=== PATIENT | female | born 1960 | race Caucasian/White ===

== ENCOUNTER 2022-10-20 11:48 | Outpatient (REF) | payer OTHER, SELFPAY ==
--- NOTE | ~2022-10-20 | XR_ITS ---
EXAMINATION: XR HIP, RIGHT CLINICAL INFORMATION: Pain in right hip. COMPARISON: None TECHNIQUE: Two views of the right hip. FINDINGS: There is severe loss of right hip joint space with periarticular spurring and subchondral cystic changes. No visible acute fracture, dislocation or subluxation seen. There is no lytic process. XR/XR hip RT min 2V IMPRESSION: Severe degenerative arthritic changes right hip joint. No visible acute fracture or dislocation seen.
== END 2022-10-20 11:49 | disposition home or self-care (01) ==
LOC: HO.XRAY 11:48
PROVIDERS: PCP Family Medicine; Visit Provider Family Medicine
DX: M25.551 Pain in right hip (principal)
CPT/HCPCS: 73502

== ENCOUNTER 2022-11-03 12:18 | Outpatient (REF) | payer OTHER, SELFPAY ==
--- NOTE | ~2022-11-03 | MM_ITS ---
EXAMINATION: MM SCREENING DIGITAL BREAST TOMOSYNTHESIS, BILATERAL CLINICAL INFORMATION: Screening. Asymptomatic. The lifetime risk of breast cancer based on the Tyrer-Cuzick Model is 5%. COMPARISON: Outside mammography: 04/12/2019, 03/20/2018, 09/12/2014 ([facility]). TECHNIQUE: Digital breast tomosynthesis is performed in both the craniocaudal and mediolateral oblique views along with computer-aided detection (CAD). Synthesized 2D images are generated from the tomosynthesis. FINDINGS: There are scattered areas of fibroglandular density (ACR BI-RADS breast composition Category b). There are no significant masses, abnormal calcifications, or other abnormalities. Parenchymal pattern is similar to prior studies. There is no developing density or architectural abnormality. The axilla and skin contours are unremarkable. No significant changes. MM/MM tomosynthesis screening BI IMPRESSION: No mammographic evidence of malignancy. ASSESSMENT: BI-RADS 1: Negative RECOMMENDATION: Routine annual mammography screening. This patient's information was entered into a reminder system with a target due date for their next mammogram.
== END 2022-11-03 12:19 | disposition home or self-care (01) ==
LOC: HO.MAMMO 12:18
PROVIDERS: PCP Family Medicine; Visit Provider Family Medicine
DX: Z12.31 Encounter for screening mammogram for malignant neoplasm of breast (principal)
CPT/HCPCS: 77063; 77067

== ENCOUNTER 2022-11-21 13:00 | Outpatient (RCR) | payer OTHER, SELFPAY ==
--- NOTE | 2022-10-27 17:04 | MHC.PT.EP ---
[facility] [place] Office [place] Office [place] Office [address] [phone] F: [phone] F: [phone] F: [phone] F: [phone] Physical Therapy Plan of Care Date of Evaluation: Date of Surgery: Diagnosis: R hip pain Assessment: Pt is a 61 y/o female referred to PT for eval and treat of R hip pain resulting in decreased tolerance for negotiating stairs, donning/ doffing shoes/ socks, getting in ad out of a vehicle, standing and walking for duration as well as performing squatting and heavy HH chores secondary to decreased R hip ROM and strength, gait abnormality, TTP of anterior R hip, and pain. Pt is deemed an appropriate candidate to receive skilled PT services to address their physical impairments in order to improve their functional ability. Frequency and Duration: The patient will be seen 2mx/ kw x 5 wks. Short Term Goals: Initiate HEP. Improve R hip flexor TTP to 0, initial: 2+ considerable. Health And Wellness Advisor Goals: I with HEP. Pt will be able to negotiate a fl of stairs with at most a little bit of difficulty; initial: quite a bit of difficulty. Pt will be able to don and doff shoes/ socks with at most a little bit of difficulty; initial: quite a bit of difficulty. Improve LEFI by at least 9 points in order to demonstrate improved function. Treatment Plan: Modalities to reduce pain, spasms and effusion. Manual therapy to restore motion and function. Therapeutic exercise to improve strength and flexibility. Neuromuscular re-education for posture and balance. Therapeutic activities to return to functional activities of daily living. Electronically signed by: Fernando Rojo PT. Please sign and return to therapist. Thank you for your referral.
--- NOTE | 2022-12-20 14:53 | MHC.PT.DC ---
[facility] [place] Office [place] Office [place] Office [address] Debbie Arthur [address] [phone] F: [phone] F: [phone] F: [phone] F: [phone] Physical Therapy Discharge Report Diagnosis: R hip pain Date of Surgery: Date of Evaluation: 10/27/22 Date of Discharge: 12/20/22 Treatments to Date: 6 Cancellations to Date: 3 No Shows to Date: Discharge Status: Patient Elected to Stop Visit Non-compliance Discharge Summary: From last Tx: 11/21/22: Pt is progressing well; reports some of her exercises mimic ones at her ex class and modifies her class exercises to be like her HEP. Reports she has been encouraged. NV trial instruction on self hip mobs. Electronically signed by: Fernando Rojo PT. Please sign and return to therapist. Thank you for your referral.
== END 2022-12-20 14:53 | disposition home or self-care (01) ==
LOC: HO.PTCHIC 13:00
PROVIDERS: PCP Family Medicine; Visit Provider Family Medicine
DX: M25.551 Pain in right hip (principal)
CPT/HCPCS: 97110; 97140; 97161

== ENCOUNTER 2022-12-01 12:31 | Outpatient (REF) | payer OTHER, SELFPAY ==
--- NOTE | ~2022-12-01 | XR_ITS ---
EXAMINATION: XR PELVIS CLINICAL INFORMATION: Pain. COMPARISON: Right hip radiographs dated 10/19/2022. TECHNIQUE: AP view of the pelvis. FINDINGS: There is marked narrowing of the superior right acetabular joint space. There is subchondral sclerosis and peripheral osteophyte formation of the articular surfaces of the right hip. There is mild narrowing of the left acetabular joint space, with subchondral sclerosis and irregularity of the left acetabular roof. No fracture or dislocation is seen. The femoral heads are smooth. The sacroiliac joints are symmetric and well-maintained. The pubic symphysis is intact. Multiple pelvic phleboliths are seen. Question left pelvic surgical clip. XR/XR pelvis 1-2V IMPRESSION: There is severe osteoarthritic change of the right hip, and mild to moderate osteoarthritic changes seen of the left hip. No fracture or dislocation is seen.
== END 2022-12-01 12:32 | disposition home or self-care (01) ==
LOC: HO.HOSX 12:31
PROVIDERS: Visit Provider Physician Assistant
DX: M16.11 Unilateral primary osteoarthritis, right hip (principal)
CPT/HCPCS: 72170

== ENCOUNTER 2022-12-08 08:19 | Outpatient (REF) | payer OTHER, SELFPAY ==
[2022-12-08 11:04] LABS: Basophils Absolute Auto 0.1 X10*3/uL (0.0-0.2); Basophils Percent Auto 1.1 % (0-2); Eosinophils Percent Auto 25.3 % (0-4); Hematocrit 38.6 % (37.0-47.0); Hemoglobin 12.4 g/dl (12.0-16.0); Imm Gran Abs Auto 0.02 X10*3/uL (0.00-0.03); Imm Gran Pct Auto 0.3 % (0.0-0.4); Lymphocytes Absolute Auto 2.6 X10*3/uL (1.2-4.9); Lymphocytes Percent Auto 32.5 % (20-40); MANUAL DIFF FLAG SCAN; Mean Corpuscular HGB Conc 32.1 g/dl (31.0-35.0); Mean Corpuscular Hemoglobin 28.4 pg (27.0-33.0); Mean Corpuscular Volume 88.5 fL (80.0-98.0); Mean Platelet Volume 9.9 fL (9.4-12.3); Monocytes Absolute Auto 0.6 X10*3/uL (0.1-1.2); Monocytes Percent Auto 7.2 % (2-11); Neutrophils Absolute Auto 2.7 x10*3/uL (2.0-8.3); Neutrophils Percent Auto 33.6 % (45-73); Platelet Count 273 X10*3/uL (160-400); Red Blood Count 4.36 X10*6/uL (4.20-5.50); Red Cell Distribution Width 13.2 % (11.0-16.0); SCAN SMEAR FLAG 1; White Blood Count 7.9 X10*3/uL (4.8-10.8)
[2022-12-08 11:26] LABS: SLIDE REVIEW VERIFIED
[2022-12-08 11:45] LABS: Alanine Aminotransferase 15 U/L (0-31); Albumin Level 4.2 g/dL (3.5-5.0); Alkaline Phosphatase 86 U/L (39-117); Anion Gap 11 (12-20); Aspartate Amino Transferase 18 U/L (5-31); Bilirubin Total 1.1 mg/dL (0.0-1.0); Blood Urea Nitrogen 16 mg/dL (9-16); Calcium 9.5 mg/dL (8.4-10.2); Carbon Dioxide 26 mmol/L (22-29); Chloride 110 mmol/L (96-108); Cholesterol 248 mg/dL; Estimated Glomerular Filt Rate > 60; Glucose Fasting 99 mg/dL (60-99); HDL Cholesterol 37 mg/dL; LDL Cholesterol Calculated 184 mg/dl; Potassium 4.1 mmol/L (3.3-5.1); Sodium 143 mmol/L (135-145); Total Protein 6.7 g/dL (6.5-8.0); Triglycerides 137 mg/dL
[2022-12-08 11:46] LABS: TSH reflex Free T4 3.07 uIU/mL (0.32-4.0)
[2022-12-08 12:03] LABS: Appearance Urine Hazy; Color Urine Yellow; Glucose Urine UA Negative (Negative); Leukocyte Esterase Urine Trace (Negative); Nitrite Urine Negative (Negative); PH 5.5 (5.0-9.0); Specific Gravity - Urine >= 1.030 (1.005-1.025); UMIC TRIGGER UA YES; Urine Blood Negative (Negative); Urine Ketones Trace mg/dL (Negative); Urine Protein Negative (Neg-Trace)
[2022-12-08 12:29] LABS: Bacteria Urine None Seen (None Seen); RBC Urine 0-2 /HPF (0-2)
[2022-12-08 12:50] LABS: Creatinine Urine 383.06 mg/dL; Microalbum/Creatinine Ratio Ur 9.3 ug/mg cr
== END 2022-12-08 08:20 | disposition home or self-care (01) ==
LOC: HO.WFDLDS 08:19
PROVIDERS: Visit Provider Family Medicine
DX: Z00.00 Encounter for general adult medical examination without abnormal findings (principal); I10 Essential (primary) hypertension
CPT/HCPCS: 36415; 80053; 80061; 81001; 81003; 82043; 84443; 85025

== ENCOUNTER 2023-01-09 12:17 | Outpatient (REF) | payer OTHER, SELFPAY ==
[2023-01-09 14:03] LABS: MANUAL DIFF FLAG NO
[2023-01-09 14:09] LABS: Basophils Absolute Auto 0.1 X10*3/uL (0.0-0.2); Basophils Percent Auto 1.7 % (0-2); Eosinophils Absolute Auto 0.5 X10*3/uL (0.0-0.4); Eosinophils Percent Auto 9.9 % (0-4); Hematocrit 40.1 % (37.0-47.0); Imm Gran Abs Auto 0.01 X10*3/uL (0.00-0.03); Imm Gran Pct Auto 0.2 % (0.0-0.4); Lymphocytes Absolute Auto 1.9 X10*3/uL (1.2-4.9); Lymphocytes Percent Auto 39.6 % (20-40); Mean Corpuscular HGB Conc 32.4 g/dl (31.0-35.0); Mean Corpuscular Hemoglobin 28.7 pg (27.0-33.0); Mean Corpuscular Volume 88.5 fL (80.0-98.0); Mean Platelet Volume 10.6 fL (9.4-12.3); Monocytes Absolute Auto 0.5 X10*3/uL (0.1-1.2); Monocytes Percent Auto 9.9 % (2-11); Neutrophils Absolute Auto 1.8 x10*3/uL (2.0-8.3); Neutrophils Percent Auto 38.7 % (45-73); Platelet Count 267 X10*3/uL (160-400); Red Blood Count 4.53 X10*6/uL (4.20-5.50); Red Cell Distribution Width 13.2 % (11.0-16.0); White Blood Count 4.8 X10*3/uL (4.8-10.8)
[2023-01-09 14:50] LABS: Alanine Aminotransferase 10 U/L (0-31); Albumin Level 4.2 g/dL (3.5-5.0); Alkaline Phosphatase 77 U/L (39-117); Anion Gap 13 (12-20); Aspartate Amino Transferase 16 U/L (5-31); Bilirubin Total 1.9 mg/dL (0.0-1.0); Blood Urea Nitrogen 16 mg/dL (9-16); Calcium 9.5 mg/dL (8.4-10.2); Carbon Dioxide 25 mmol/L (22-29); Chloride 108 mmol/L (96-108); Cholesterol 249 mg/dL; Estimated Glomerular Filt Rate 58; Glucose Fasting 96 mg/dL (60-99); HDL Cholesterol 38 mg/dL; LDL Cholesterol Calculated 195 mg/dl; Potassium 4.2 mmol/L (3.3-5.1); Sodium 142 mmol/L (135-145); Total Protein 6.9 g/dL (6.5-8.0); Triglycerides 82 mg/dL
== END 2023-01-09 12:18 | disposition home or self-care (01) ==
LOC: HO.WFDLDS 12:17
PROVIDERS: Visit Provider Family Medicine
DX: Z00.00 Encounter for general adult medical examination without abnormal findings (principal); R89.8 Other abnormal findings in specimens from other organs, systems and tissues; E78.5 Hyperlipidemia, unspecified
CPT/HCPCS: 36415; 80053; 80061; 85025

== ENCOUNTER 2023-01-11 13:55 | Outpatient (REF) | payer OTHER, SELFPAY ==
--- NOTE | ~2023-01-11 | MM_ITS ---
EXAMINATION: BONE DENSITOMETRY CLINICAL INDICATION: Screening for osteoporosis. COMPARISON: None (current study represents initial baseline exam). TECHNIQUE: Using a [employer] DXA System (software version: 13.1) manufactured by [employer], dual-energy x-ray absorptiometry was performed of the lumbar spine and left hip. The images are of good technical quality. Summary results are attached. FINDINGS: AP SPINE L1-L4: BMD 1.186 g/cm2, Z-score 0.7, T-score 0.1, normal. LEFT FEMUR, NECK: BMD 0.817 g/cm2, Z-score -0.7, T-score -1.6, osteopenia. LEFT FEMUR, TOTAL: BMD 0.923 g/cm2, Z-score -0.2, T-score -0.7, normal. IDENTIFIED RISK FACTORS: Menopause, family history (parent hip fracture). HISTORY OF FRACTURE: None listed. MEDICATIONS: None listed. MM/XR DEXA axial skeleton IMPRESSION: 1. DIAGNOSIS: Osteopenia based on the lowest T-score value of -1.6 in the femoral neck applying World Health Organization criteria. 2. 10-YEAR FRACTURE RISK PREDICTION, FRAX: Major osteoporotic fracture (clinical spine, forearm, hip or shoulder) 16.9%. Hip fracture 0.9%. 3. Treatment Recommendations: NOF guidelines recommend consideration for treatment in postmenopausal women and men age 50 and older presenting with the following: -A hip or vertebral (clinical or morphometric) fracture. -T-score less than or equal to -2.5 at the femoral neck or spine after appropriate evaluation to exclude secondary causes. -Low bone mass at the hip or spine and a 10-year fracture probability by FRAX of greater than or equal to 3% for hip fracture or greater than or equal to 20% for major osteoporotic fracture based on the [place] adapted WHO algorithm. 4. Other Recommendations: All treatment decisions require clinical judgment and consideration of individual patient factors, including patient preferences, comorbidities, previous drug use, risk factors not captured in the FRAX model (e.g. frailty, falls, vitamin D deficiency, increased bone turnover, interval significant decline in bone density) and possible under or overestimation of fracture risk by FRAX. Additional medical evaluation for secondary cause of low bone mineral density may be appropriate. FUTURE SCAN RECOMMENDATION: People with diagnosed cases of osteoporosis or at high risk for fracture should have regular bone mineral density tests. For patients eligible for Medicare, routine testing is allowed once every 2 years. The testing frequency can be increased to one year for patients who have rapidly progressing disease, those who are receiving or discontinuing medical therapy to restore bone mass, or have additional risk factors.
== END 2023-01-11 13:56 | disposition home or self-care (01) ==
LOC: HO.MAMMO 13:55
PROVIDERS: Visit Provider Family Medicine
DX: Z13.820 Encounter for screening for osteoporosis (principal); Z78.0 Asymptomatic menopausal state
CPT/HCPCS: 77080

== ENCOUNTER 2023-03-14 09:49 | Outpatient (REF) | payer OTHER, SELFPAY ==
[2023-03-14 12:13] LABS: MANUAL DIFF FLAG NO
[2023-03-14 12:22] LABS: Basophils Absolute Auto 0.1 X10*3/uL (0.0-0.2); Basophils Percent Auto 1.4 % (0-2); Eosinophils Absolute Auto 0.3 X10*3/uL (0.0-0.4); Eosinophils Percent Auto 5.2 % (0-4); Hematocrit 38.8 % (37.0-47.0); Hemoglobin 12.6 g/dl (12.0-16.0); Imm Gran Abs Auto 0.02 X10*3/uL (0.00-0.03); Imm Gran Pct Auto 0.4 % (0.0-0.4); Mean Corpuscular HGB Conc 32.5 g/dl (31.0-35.0); Mean Corpuscular Hemoglobin 28.8 pg (27.0-33.0); Mean Corpuscular Volume 88.8 fL (80.0-98.0); Mean Platelet Volume 10.6 fL (9.4-12.3); Monocytes Absolute Auto 0.4 X10*3/uL (0.1-1.2); Monocytes Percent Auto 8.7 % (2-11); Neutrophils Absolute Auto 2.2 x10*3/uL (2.0-8.3); Neutrophils Percent Auto 43.3 % (45-73); Platelet Count 259 X10*3/uL (160-400); Red Blood Count 4.37 X10*6/uL (4.20-5.50); Red Cell Distribution Width 13.2 % (11.0-16.0)
[2023-03-14 12:52] LABS: Anion Gap 11 (12-20); Blood Urea Nitrogen 13 mg/dL (9-16); Calcium 9.7 mg/dL (8.4-10.2); Carbon Dioxide 27 mmol/L (22-29); Chloride 109 mmol/L (96-108); Cholesterol 249 mg/dL; Estimated Glomerular Filt Rate 58; Glucose Fasting 92 mg/dL (60-99); HDL Cholesterol 39 mg/dL; LDL Cholesterol Calculated 186 mg/dl; Potassium 4.7 mmol/L (3.3-5.1); Sodium 142 mmol/L (135-145); Triglycerides 120 mg/dL
== END 2023-03-14 09:50 | disposition home or self-care (01) ==
LOC: HO.WFDLDS 09:49
PROVIDERS: Visit Provider Family Medicine
DX: Z00.00 Encounter for general adult medical examination without abnormal findings (principal); E78.5 Hyperlipidemia, unspecified
CPT/HCPCS: 36415; 80048; 80061; 85025

== ENCOUNTER 2023-04-06 13:28 | Outpatient (REF) | payer OTHER, SELFPAY ==
--- NOTE | ~2023-04-06 | US_ITS ---
EXAMINATION: US THYROID CLINICAL INFORMATION: Mass right side of neck. COMPARISON: None available. TECHNIQUE: Linear transducer grayscale and color Doppler examination with attention to the region of the thyroid. FINDINGS: SIZE: Measurements of the thyroid lobes and nodules are given in sagittal, anteroposterior and transverse dimensions respectively. Right Thyroid Lobe: 4.9 x 2.3 x 2.5 cm, volume 14.7 mL. Parenchyma: The gland echotexture is homogeneous. Thyroid vascularity is normal. Left Thyroid Lobe: 3.7 x 1.0 x 1.2 cm, volume 2.3 mL. Parenchyma: The gland echotexture is homogeneous. Thyroid vascularity is increased. Isthmus: 0.3 cm in maximum AP dimension. Estimated total number of nodules greater than or equal to 1 cm: 3. Diagnostics Tech nodules are described as follows: 1. Location: Right mid/inferior. Size: 3.3 x 2.3 x 2.3 cm, volume 9.48 mL. Nodule characteristics: Composition: Mixed cystic and solid (1). Echogenicity: Cannot be determined (1). Shape: Not taller than wide (0). Margins: Lobulated (2). Echogenic Foci: Punctate echogenic foci (3). ACR TI-RADS total points: 7 ACR TI-RADS category: 5 2. Location: Right isthmus. Size: 1.6 x 1.0 x 1.1 cm, volume 0.91 mL. Nodule characteristics: Composition: Solid (2). Echogenicity: Very hypoechoic (3). Shape: Not taller than wide (0). Margins: Smooth (0). Echogenic Foci: Peripheral calcifications (2). ACR TI-RADS total points: 7 ACR TI-RADS category: 5 3. Location: Left lateral mid. Size: 1.4 x 0.9 x 0.8 cm, volume 0.52 mL. Nodule characteristics: Composition: Mixed cystic and solid (1). Echogenicity: Hypoechoic (2). Shape: Taller than wide (3). Margins: Smooth (0). Echogenic Foci: None (0). ACR TI-RADS total points: 6 ACR TI-RADS category: 4 NODES: Small normal-appearing right cervical lymph nodes. US/US thyroid IMPRESSION: Right neck mass corresponds to a large right thyroid nodule. 3 thyroid nodules identified all of which meet TI RADS criteria for fine-needle aspiration. ACR TI-RADS RECOMMENDATION REFERENCE: Ultrasound-guided fine-needle aspiration, followup ultrasound, no further follow up. * TR1 (0 point) and TR2 (2 points): No FNA or follow up. * TR3 (3 points): FNA if more than or equal to 2.5 cm in maximum dimension, followup ultrasound in 1, 3 and 5 years if 1.5 to 2.4 cm in maximum dimension. * TR4 (4-6 points): FNA if more than or equal to 1.5 cm in maximum dimension, followup ultrasound in 1, 2, 3 and 5 years if 1 to 1.4 cm in maximum dimension. * TR5 (more than or equal to 7 points): FNA if more than or equal to 1 cm in maximum dimension, followup ultrasound every year for 5 years if 0.5 to 0.9 cm in maximum dimension. * TR3, TR4 or TR5 nodules that are below the size threshold for followup receive no follow up.
== END 2023-04-06 13:29 | disposition home or self-care (01) ==
LOC: HO.US 13:28
PROVIDERS: PCP Family Medicine; Visit Provider Family Medicine
DX: R22.1 Localized swelling, mass and lump, neck (principal)
CPT/HCPCS: 76536

== ENCOUNTER 2023-06-19 11:04 | Outpatient (REF) | payer OTHER, SELFPAY ==
[2023-06-19 13:58] LABS: MANUAL DIFF FLAG NO
[2023-06-19 14:04] LABS: Basophils Absolute Auto 0.1 X10*3/uL (0.0-0.2); Basophils Percent Auto 1.2 % (0-2); Eosinophils Absolute Auto 0.3 X10*3/uL (0.0-0.4); Hematocrit 38.7 % (37.0-47.0); Hemoglobin 12.4 g/dl (12.0-16.0); Imm Gran Abs Auto 0.01 X10*3/uL (0.00-0.03); Imm Gran Pct Auto 0.2 % (0.0-0.4); Lymphocytes Absolute Auto 1.9 X10*3/uL (1.2-4.9); Lymphocytes Percent Auto 32.2 % (20-40); Mean Corpuscular Hemoglobin 28.8 pg (27.0-33.0); Mean Platelet Volume 10.3 fL (9.4-12.3); Monocytes Absolute Auto 0.5 X10*3/uL (0.1-1.2); Monocytes Percent Auto 8.1 % (2-11); Neutrophils Absolute Auto 3.1 x10*3/uL (2.0-8.3); Neutrophils Percent Auto 53.3 % (45-73); Platelet Count 257 X10*3/uL (160-400); Red Cell Distribution Width 12.9 % (11.0-16.0); White Blood Count 5.8 X10*3/uL (4.8-10.8)
[2023-06-19 14:14] LABS: Anion Gap 10 (12-20); Blood Urea Nitrogen 19 mg/dL (9-16); Calcium 9.5 mg/dL (8.4-10.2); Carbon Dioxide 28 mmol/L (22-29); Chloride 109 mmol/L (96-108); Cholesterol 140 mg/dL (<200); Estimated Glomerular Filt Rate > 60; Glucose Fasting 92 mg/dL (60-99); HDL Cholesterol 44 mg/dL (>40); LDL Cholesterol Calculated 78 mg/dL (<100); Potassium 4.6 mmol/L (3.3-5.1); Sodium 142 mmol/L (135-145); Triglycerides 92 mg/dL (<150)
== END 2023-06-19 11:05 | disposition home or self-care (01) ==
LOC: HO.WFDLDS 11:04
PROVIDERS: Visit Provider Family Medicine
DX: Z00.00 Encounter for general adult medical examination without abnormal findings (principal); R89.8 Other abnormal findings in specimens from other organs, systems and tissues; E78.5 Hyperlipidemia, unspecified
CPT/HCPCS: 36415; 80048; 80061; 85025

== ENCOUNTER 2023-06-23 11:49 | Outpatient (AMB) | payer OTHER, SELFPAY ==
--- NOTE | 2023-06-23 11:57 | A.OFFPC_ITS ---
Vital Signs 06/23/23 11:58 Height 5 ft 10 in Weight 185 lb BMI 26.5 BP 124/78 Blood Pressure Location Lt brachial Position Sitting Pulse 75 Pulse Source Pulse Oximeter Pulse Oximetry (%) 99 Oxygen Delivery Method Room Air Intake Visit Reasons: f/u HLD Intake Note: Patient is following up on cholesterol. Patient states she feels her heart races sometimes since taking the statin. She is also concerned about thyroid being checked out. She also complains of left side nose stuffiness. Allergies Penicillins Allergy (Verified 06/23/23 12:00) rash Tobacco use date assessed: 06/23/23 Dental Screening Dental Screen Date: 06/23/23 Did you have a dental visit in the last 12 months?: No Did you have a dental problem in the last 6 months where you did not have access to dental care?: No Was dental information given to patient?: Patient has dentist HPI f/u D HPI Details 62 y/o female presents to /u [facility]. Had started her on artovastatin 40mg daily. Pt had R-sided neck swelling which was likely a reactive lymph node - checking ultrasound. Thyroid ultrasound 04/06/23 showed a large R thyroid nodule. Labs were drawn 06/19/23. Reviewed labs with pt. Triglycerides 92. TC 140. LDL 78. HDL 44. She reports she had not been taking her artovastatin 40mg. Ongoing elevated eosinophils. [facility] Social History Housing: House Patient Tobacco Use Status: Never used Tobacco e-Cigarette/Vaping Use: Never Used Second Hand Smoke Exposure: No service: No Current occupational status: retired Current occupational exposures/hazards: No Cognitive needs: No Hearing needs: No Vision needs: No Questionnaire Thrive Questionnaire Date Thrive assessed: 12/23/22 ABDIAS-7 AMB Questionnaire ABDIAS-7 Date ABDIAS - 7 assessed: 12/23/22 Source: Developed by Drs. Jonathan Muniz, Laura Meyer, Say Alston and colleagues, with an educational americo from [employer]. Physical exam (Primary Care) Vital Signs: Last Vital Signs Pulse 75 06/23/23 11:58 BP 124/78 06/23/23 11:58 Pulse Ox 99 06/23/23 11:58 Oxygen Delivery Method Room Air 06/23/23 11:58 BMI result Body Mass Index 26.5 Tobacco/Smoking Status: Tobacco use Status Tobacco use date assessed 06/23/23 06/23/23 12:08 Patient Tobacco Use Status Never used Tobacco 06/23/23 12:08 e-Cigarette/Vaping Use Never Used 06/23/23 12:08 Thrive Assessment: Date of Thrive Assessment Date Thrive assessed 12/23/22 06/23/23 12:08 Assessment and Plan Assessment & Plan (1) Hyperlipidemia: Code(s): E78.5 - Hyperlipidemia, unspecified Plan: Lipids markedly improved on atorvastatin. She has been taking 20 mg daily Adjusted med list to reflect 20 mg daily and she will continue this dose. (2) Thyroid nodule: Code(s): E04.1 - Nontoxic single thyroid nodule Plan: Already referred to ENT for consideration of biopsy Referred to endocrinology (3) Eosinophil count raised: Code(s): R89.8 - Other abnormal findings in specimens from other organs, systems and tissues Plan: Patient concerned regarding elevated eosinophil count. She notes some nasal irritation at times and may have some allergies. She can trial a daytime, OTC antihistamine such as Zyrtec. Orders: Orders Basic Metabolic Panel Today E04.1 - Nontoxic single thyroid nodule, Z00.00 - Encounter for general adult medical examination without abnormal findings Lipid Panel Today E78.5 - Hyperlipidemia, unspecified, Z00.00 - Encounter for general adult medical examination without abnormal findings Triiodothyronine T3 Total Today E03.9 - Hypothyroidism, unspecified, E04.1 - Nontoxic single thyroid nodule Free T4 (Free Thyroxine) Today E03.9 - Hypothyroidism, unspecified, E04.1 - Nontoxic single thyroid nodule Thyroid Stimulating Hormone Today E03.9 - Hypothyroidism, unspecified, E04.1 - Nontoxic single thyroid nodule Complete Blood Count Auto Diff Today R89.8 - Other abnormal findings in specimens from other organs, systems and tissues, Z00.00 - Encounter for general adult medical examination without abnormal findings Referrals Endocrinology Referral E04.1 - Nontoxic single thyroid nodule Medications: Changed From atorvastatin 40 mg PO BEDTIME 30 days 30 tabs 2RF To atorvastatin 20 mg PO BEDTIME 30 days 30 tabs 2RF Coding Level of Care Code Est Pt Level 3 (05996) Diagnoses Hyperlipidemia E78.5 Thyroid nodule E04.1 Eosinophil count raised R89.8
[2023-06-23 11:58] VITALS: BP 124/78; PULSE 75; O2SAT 99; BMI 26.5
== END 2023-06-23 12:44 | disposition home or self-care (01) ==
PROVIDERS: PCP Family Medicine; Visit Provider Family Medicine
DX: E78.5 Hyperlipidemia, unspecified (principal); E04.1 Nontoxic single thyroid nodule; R89.8 Other abnormal findings in specimens from other organs, systems and tissues
CPT/HCPCS: 99213

== ENCOUNTER 2023-09-21 09:58 | Outpatient (REF) | payer OTHER, SELFPAY ==
[2023-09-21 11:54] LABS: MANUAL DIFF FLAG NO
[2023-09-21 12:26] LABS: Basophils Absolute Auto 0.1 X10*3/uL (0.0-0.2); Basophils Percent Auto 0.9 % (0-2); Eosinophils Absolute Auto 0.3 X10*3/uL (0.0-0.4); Eosinophils Percent Auto 4.6 % (0-4); Hematocrit 37.8 % (37.0-47.0); Imm Gran Abs Auto 0.02 X10*3/uL (0.00-0.03); Imm Gran Pct Auto 0.3 % (0.0-0.4); Lymphocytes Absolute Auto 1.8 X10*3/uL (1.2-4.9); Lymphocytes Percent Auto 30.9 % (20-40); Mean Corpuscular HGB Conc 31.7 g/dl (31.0-35.0); Mean Corpuscular Hemoglobin 28.4 pg (27.0-33.0); Mean Corpuscular Volume 89.6 fL (80.0-98.0); Monocytes Absolute Auto 0.5 X10*3/uL (0.1-1.2); Monocytes Percent Auto 8.7 % (2-11); Neutrophils Absolute Auto 3.2 x10*3/uL (2.0-8.3); Neutrophils Percent Auto 54.6 % (45-73); Platelet Count 270 X10*3/uL (160-400); Red Blood Count 4.22 X10*6/uL (4.20-5.50); Red Cell Distribution Width 13.5 % (11.0-16.0); White Blood Count 5.9 X10*3/uL (4.8-10.8)
[2023-09-21 12:45] LABS: Anion Gap 11 (12-20); Blood Urea Nitrogen 16 mg/dL (9-16); Calcium 9.6 mg/dL (8.4-10.2); Carbon Dioxide 27 mmol/L (22-29); Chloride 108 mmol/L (96-108); Cholesterol 162 mg/dL (<200); Estimated Glomerular Filt Rate > 60; Glucose Random 103 mg/dL (60-115); HDL Cholesterol 42 mg/dL (>40); LDL Cholesterol Calculated 103 mg/dL (<100); Potassium 4.7 mmol/L (3.3-5.1); Sodium 141 mmol/L (135-145); Triglycerides 86 mg/dL (<150)
[2023-09-21 12:50] LABS: Free T4 (Free Thyroxine) 0.92 ng/dL (0.71-1.85); Thyroid Stimulating Hormone 1.49 uIU/mL (0.32-4.0)
[2023-09-22 05:28] LABS: Triiodothyronine T3 Total 108 ng/dL (76-181)
== END 2023-09-21 09:59 | disposition home or self-care (01) ==
LOC: HO.WFDLDS 09:58
PROVIDERS: Visit Provider Family Medicine
DX: Z00.00 Encounter for general adult medical examination without abnormal findings (principal); R89.8 Other abnormal findings in specimens from other organs, systems and tissues; E03.9 Hypothyroidism, unspecified; E04.1 Nontoxic single thyroid nodule; E78.5 Hyperlipidemia, unspecified
CPT/HCPCS: 36415; 80048; 80061; 84439; 84443; 84480; 85025

== ENCOUNTER 2023-09-26 11:23 | Outpatient (AMB) | payer OTHER, SELFPAY ==
--- NOTE | 2023-09-26 11:27 | A.OFFPC_ITS ---
Vital Signs 09/26/23 11:28 Height 5 ft 10 in Weight 191 lb 8 oz BMI 27.5 BP 136/68 Blood Pressure Location Lt brachial Position Sitting Respiration 14 Pulse 96 Pulse Source Pulse Oximeter Pulse Oximetry (%) 97 Oxygen Delivery Method Room Air Intake Visit Reasons: f/u hyperlipidemia and labs Intake Note: Patient is here for lab review and she wanted to inform her provider she was seen in the [facility] for calf pain and was diagnosed with a blood clot. Patient was put on eliquis. Sas Clinical Programmer Required: No Accompanied by: Self / Same As Patient Allergies Penicillins Allergy (Verified 09/26/23 11:33) rash Medication List - Last Reconciled 09/26/23 by Ubaldo Morris MD apixaban (Eliquis) 5 mg PO BID atorvastatin 20 mg PO BEDTIME 30 days Tobacco use date assessed: 06/23/23 HPI f/u hyperlipidemia and labs HPI Details 62 y/o female presents to f/u HLD and la bs. Labs were drawn 09/21/23. Reviewed labs with pt. Triglycerides 86. TC 162. LDL 103. HDL 42. She is on artovastatin 20mg. Pt notes she was seen in the [facility] for calf pain and was diagnosed with a blood clot about 2 months ago. Pt notes she did not have any injury and had started noticing the pain. Pt was put on eliquis. Hx of thyroid nodules - had made a referral to Endocrinology. [facility] Social History (Reviewed 06/23/23 @ 12:04 by Jossy Raymundo [facility] [address]) Housing: House Patient Tobacco Use Status: Never used Tobacco e-Cigarette/Vaping Use: Never Used Second Hand Smoke Exposure: No service: No Current occupational status: retired Current occupational exposures/hazards: No Cognitive needs: No Hearing needs: No Vision needs: No Questionnaire Thrive Questionnaire Date Thrive assessed: 12/23/22 ABDIAS-7 AMB Questionnaire ABDIAS-7 Date ABDIAS - 7 assessed: 12/23/22 Source: Developed by Drs. Jonathan Muniz, Laura Meyer, Say Alston and colleagues, with an educational americo from [employer]. Review of Systems Const Denies chills, Denies fatigue, Denies fever(s), Denies headache(s) and Denies weakness ENT Denies dizziness and Denies headache(s) Card Denies chest pain, Denies lightheadedness, Denies dyspnea and Denies other (Palpitations) Resp Denies cough, Denies dyspnea, Denies wheezing and Denies other ( shortness of breath) Musc Denies numbness and Denies tingling Neuro Denies dizziness, Denies headache(s), Denies numbness, Denies tingling, Denies paresthesias and Denies weakness Psych Denies anxiety and Denies depression Endo Denies fatigue Aller/Immun Denies wheezing Physical exam (Primary Care) Vital Signs: Last Vital Signs Pulse 96 09/26/23 11:28 Resp 14 09/26/23 11:28 BP 136/68 09/26/23 11:28 Pulse Ox 97 09/26/23 11:28 Oxygen Delivery Method Room Air 09/26/23 11:28 BMI result Body Mass Index 27.5 Tobacco/Smoking Status: Tobacco use Status Tobacco use date assessed 06/23/23 09/26/23 11:34 Patient Tobacco Use Status Never used Tobacco 09/26/23 11:34 e-Cigarette/Vaping Use Never Used 09/26/23 11:34 Thrive Assessment: Date of Thrive Assessment Date Thrive assessed 12/23/22 09/26/23 11:34 Const General: no acute distress and well developed Nutritional Appearance: well nourished Orientation/consciousness: patient oriented x3 HENMT Head: Yes normocephalic and Yes atraumatic Eyes General: appearance normal, both eyes and all related structures Pupils: Equal, round and reactive pupils present EOM: EOMs intact bilaterally Resp Effort & Inspection: normal respiratory effort Auscultation: clear to auscultation bilaterally Cardio Rate: regular rate Rhythm: regular rhythm Heart sounds: S1 normal heart sound present, S2 normal heart sound present, no gallops, no murmurs and no rubs Neuro General: patient oriented x3 and gait normal Cranial nerves: Yes Equal, round and reactive pupils present Psych Affect: normal affect Assessment and Plan Assessment & Plan (1) Thyroid nodule: Code(s): E04.1 - Nontoxic single thyroid nodule Plan: Thyroid?nodules?and?imaging?meets?criteria?for?biopsy. She?is?referred?to?ENT?and?endocrinology. (2) Hyperlipidemia: Code(s): E78.5 - Hyperlipidemia, unspecified Plan: Lipids?are?well?controlled?on?atorvastatin?20?mg?daily. Continue?current?medication?regimen (3) Superficial thrombophlebitis of right leg: Code(s): I80.01 - Phlebitis and thrombophlebitis of superficial vessels of right lower extremity Plan: Superficial?thrombophlebitis?of?right?leg. Swelling?is?down She?is?almost?out?of?Eliquis?and?is?having?trouble?affording?this. Checking?ultrasound?to?see?if?this?has?resolved.??Would?switch?to?aspirin. No?prior?thrombosis We?discussed?that?if?we?have?any?other?concerns?or?she?has?another?clot, ?we?should?consider?reinstituting?Eliquis?long?term/permanently?and?referring?he r?to?Hematology-Oncology She?does?have?thyroid?nodules?which?require?biopsy?FNA?but?she?does?not?have?res ults?yet. Orders: Orders US venous duplex LE RT Today I80.01 - Phlebitis and thrombophlebitis of superficial vessels of right lower extremity Medications: New apixaban (Eliquis) 5 mg PO BID 30 days 60 tabs 2RF Coding Level of Care Code Est Pt Level 4 (17738) Diagnoses Thyroid nodule E04.1 Hyperlipidemia E78.5 Superficial thrombophlebitis of right leg I80.01
[2023-09-26 11:28] VITALS: BP 136/68; PULSE 96; RESP 14; O2SAT 97; BMI 27.5
== END 2023-09-26 12:18 | disposition home or self-care (01) ==
PROVIDERS: PCP Family Medicine; Visit Provider Family Medicine
DX: E04.1 Nontoxic single thyroid nodule (principal); E78.5 Hyperlipidemia, unspecified; I80.01 Phlebitis and thrombophlebitis of superficial vessels of right lower extremity
CPT/HCPCS: 99214

== ENCOUNTER 2023-10-05 11:26 | Outpatient (REF) | payer OTHER, SELFPAY ==
--- NOTE | ~2023-10-05 | US_ITS ---
EXAMINATION: US VENOUS ULTRASOUND WITH DOPPLER LOWER EXTREMITY, RIGHT CLINICAL INFORMATION: Phlebitis and thrombophlebitis of superficial vessels of right leg Patient states superficial clot seen 2 months ago at [facility] COMPARISON: None available. TECHNIQUE: Ultrasound of the deep veins is performed from the hip to the calf with compression sonography and color and pulse Doppler assessment. Spectral analysis with color-flow imaging is performed. FINDINGS: There is normal venous compression and respiratory variation and augmented flow. The visualized common femoral vein, superficial femoral vein, profunda femoral vein, popliteal vein, and the trifurcation region shows no evidence of deep venous thrombosis. Previously seen redness and swelling right mid calf laterally is no longer evident. Varicose vein seen in this area compresses and has normal color and Doppler flow. US/US venous duplex LE RT IMPRESSION: No DVT demonstrated in the right lower extremity.
== END 2023-10-05 11:27 | disposition home or self-care (01) ==
LOC: HO.HMGCX 11:26
PROVIDERS: PCP Family Medicine; Visit Provider Family Medicine
DX: I80.01 Phlebitis and thrombophlebitis of superficial vessels of right lower extremity (principal)
CPT/HCPCS: 93971

== ENCOUNTER 2024-03-12 16:21 | Outpatient (AMB) | payer OTHER, SELFPAY ==
[2024-03-12 16:28] VITALS: BP 130/74; PULSE 83; O2SAT 97; BMI 28.0
--- NOTE | 2024-03-12 16:28 | MHC.PC.OV ---
Vital Signs 03/12/24 16:28 Height 5 ft 10 in Weight 195 lb BMI 28.0 BP 130/74 Blood Pressure Location Lt brachial Position Sitting Pulse 83 Pulse Source Pulse Oximeter Pulse Oximetry (%) 97 Oxygen Delivery Method Room Air Intake Visit Reasons: Follow Up - see comments Intake Note: Patient is here to follow up on statin continuation, the area in her leg with blood clot still bothers her in right calf. Allergies Penicillins Allergy (Verified 03/12/24 16:34) rash Tobacco use date assessed: 03/12/24 Dental Screening Dental Screen Date: 06/23/23 HPI Follow Up - see comments HPI Details 63 y/o female presents to f/u chronic conditions. Pt has questions about statin therapy. She is currently on artovastatin 20mg and would like to hold off on this. Pt reports ongoing R calf pain. HPI Comments History of Present Illness Details Documentation assistance for Ubaldo Morris MD, was provided by Ashu Gamino, Mechanical Test Engineer on 03/12/2024 4:43 PM EST. I, Dr. Morris, have read, observed, and verified documentation. PFSH Medical History (Updated 03/12/24 @ 16:36 by Jossy Raymundo CMA) Deviated septum Hernia FH: cholecystectomy Family History (Updated 03/12/24 @ 16:39 by Jossy Raymundo CMA) Mother Stroke Mental health disorder Father Parkinson's disease Substance abuse in family Daughter Mental health disorder Social History Housing: House Patient Tobacco Use Status: Never used Tobacco e-Cigarette/Vaping Use: Never Used Second Hand Smoke Exposure: No service: No Current occupational status: retired Current occupational exposures/hazards: No Cognitive needs: No Hearing needs: No Vision needs: No Questionnaire Thrive Questionnaire Date Thrive assessed: 12/23/22 ABDIAS-7 AMB Questionnaire ABDIAS-7 Date ABDIAS - 7 assessed: 12/23/22 Source: Developed by Drs. Jonathan Muniz, Laura Meyer, Say Alston and colleagues, with an educational americo from [employer] Review of Systems Const Denies chills, Denies fatigue, Denies fever(s), Denies headache(s) and Denies weakness ENT Denies dizziness and Denies headache(s) Card Denies chest pain, Denies lightheadedness, Denies dyspnea and Denies other (Palpitations) Resp Denies cough, Denies dyspnea, Denies wheezing and Denies other ( shortness of breath) Musc Denies numbness and Denies tingling Neuro Denies dizziness, Denies headache(s), Denies numbness, Denies tingling, Denies paresthesias and Denies weakness Psych Denies anxiety and Denies depression Endo Denies fatigue Aller/Immun Denies wheezing Physical exam (Primary Care) BMI result Body Mass Index 28.0 Tobacco/Smoking Status: Tobacco use Status Tobacco use date assessed 06/23/23 03/12/24 16:29 Patient Tobacco Use Status Never used Tobacco 03/12/24 16:29 e-Cigarette/Vaping Use Never Used 03/12/24 16:29 Thrive Assessment: Date of Thrive Assessment Date Thrive assessed 12/23/22 03/12/24 16:29 Const General: no acute distress and well developed Nutritional Appearance: well nourished Orientation/consciousness: patient oriented x3 [facility] Head: Yes normocephalic and Yes atraumatic Eyes General: appearance normal, both eyes and all related structures Pupils: Equal, round and reactive pupils present EOM: EOMs intact bilaterally Resp Effort & Inspection: normal respiratory effort Auscultation: clear to auscultation bilaterally Cardio Rate: regular rate Rhythm: regular rhythm Heart sounds: S1 normal heart sound present, S2 normal heart sound present, no gallops, no murmurs and no rubs Neuro General: patient oriented x3 and gait normal Cranial nerves: Yes Equal, round and reactive pupils present Psych Affect: normal affect Assessment and Plan Assessment & Plan (1) Deep vein thrombosis: Code(s): I82.409 - Acute embolism and thrombosis of unspecified deep veins of unspecified lower extremity Plan: History?of?DVT Still?gets?some?leg?discomfort.??No?swelling,?erythema?or?cords?palpated. Continue?elevating?leg?and?using?compression?stockings Call?or?return?to?office?if?anything?changes. No?contraindications?to?using?a?daily?baby?aspirin?so?she?can?consider?aspirin?81?mg?OTC?if?she?is?concerned?about?further?thromboembolic?events (2) Hyperlipidemia: Code(s): E78.5 - Hyperlipidemia, unspecified Plan: Patient?had?LDL?cholesterol?of?195?and?had?been?put?on?atorvastatin?20?mg?daily - LDL?had?been?brought?down?as?low?as?78?and?most?recently?103. She?has?not?refilled?atorvastatin?and?has?been?off?it?for?about?a?month?now. She?would?like?to?get?her?labs?rechecked?without?it?to?see?if?she?still?needs?this?medication. We?can?follow-up?at?her?next?visit?but?she?can?also?check?the?portal?and?I?advised?that?if?her?LDL?cholesterol?is?greater?than?130?she?should?resume?it.??If?less?than?130?we?can?discuss?at?her?next?appointment?though?I?did?let?her?know?that?best?prac shena?is?to?have?her?LDL?cholesterol?less?than?100. Coding Level of Care Code Est Pt Level 3 (48231) Diagnoses Deep vein thrombosis I82.409 Hyperlipidemia E78.5
== END 2024-03-12 17:08 | disposition home or self-care (01) ==
PROVIDERS: PCP Family Medicine; Visit Provider Family Medicine
DX: I82.409 Acute embolism and thrombosis of unspecified deep veins of unspecified lower extremity (principal); E78.5 Hyperlipidemia, unspecified
CPT/HCPCS: 99213

== ENCOUNTER 2024-03-29 09:43 | Outpatient (REF) | payer OTHER, SELFPAY ==
[2024-03-29 11:23] LABS: MANUAL DIFF FLAG NO
[2024-03-29 11:30] LABS: Basophils Absolute Auto 0.1 X10*3/uL (0.0-0.2); Basophils Percent Auto 1.3 % (0-2); Eosinophils Absolute Auto 0.5 X10*3/uL (0.0-0.4); Eosinophils Percent Auto 8.6 % (0-4); Hematocrit 36.3 % (37.0-47.0); Hemoglobin 11.7 g/dl (12.0-16.0); Imm Gran Abs Auto 0.03 X10*3/uL (0.00-0.03); Imm Gran Pct Auto 0.6 % (0.0-0.4); Lymphocytes Absolute Auto 1.6 X10*3/uL (1.2-4.9); Lymphocytes Percent Auto 28.8 % (20-40); Mean Corpuscular HGB Conc 32.2 g/dl (31.0-35.0); Mean Corpuscular Volume 89.9 fL (80.0-98.0); Monocytes Absolute Auto 0.5 X10*3/uL (0.1-1.2); Monocytes Percent Auto 9.1 % (2-11); Neutrophils Absolute Auto 2.8 x10*3/uL (2.0-8.3); Neutrophils Percent Auto 51.6 % (45-73); Platelet Count 259 X10*3/uL (160-400); Red Blood Count 4.04 X10*6/uL (4.20-5.50); Red Cell Distribution Width 13.2 % (11.0-16.0); White Blood Count 5.4 X10*3/uL (4.8-10.8)
[2024-03-29 11:49] LABS: Appearance Urine Clear; Color Urine Yellow; Glucose Urine UA Negative (Negative); Leukocyte Esterase Urine Trace (Negative); Nitrite Urine Negative (Negative); Specific Gravity - Urine 1.015 (1.005-1.025); UMIC TRIGGER UA YES; Urine Blood Negative (Negative); Urine Ketones Negative (Negative); Urine Protein Negative (Neg-Trace)
[2024-03-29 11:50] LABS: Alanine Aminotransferase 18 U/L (0-31); Albumin Level 4.1 g/dL (3.5-5.0); Alkaline Phosphatase 82 U/L (39-117); Anion Gap 11 (12-20); Aspartate Amino Transferase 19 U/L (5-31); Blood Urea Nitrogen 12 mg/dL (9-16); Calcium 9.3 mg/dL (8.4-10.2); Carbon Dioxide 27 mmol/L (22-29); Chloride 109 mmol/L (96-108); Cholesterol 263 mg/dL (<200); Estimated Glomerular Filt Rate > 60; Glucose Fasting 90 mg/dL (60-99); HDL Cholesterol 38 mg/dL (>40); LDL Cholesterol Calculated 199 mg/dL (<100); Potassium 4.3 mmol/L (3.3-5.1); Sodium 143 mmol/L (135-145); Triglycerides 131 mg/dL (<150)
[2024-03-29 11:56] LABS: Bacteria Urine None Seen (None Seen); Hyaline Casts Urine 0-2 /LPF (0-2); Other Crystals Urine Present; RBC Urine 0-2 /HPF (0-2); Squamous Epithelial Cell Urine 0-2 /HPF (0-2); WBC Urine 0-5 /HPF (0-5)
[2024-03-29 12:08] LABS: TSH reflex Free T4 2.21 uIU/mL (0.32-4.0)
== END 2024-03-29 09:44 | disposition home or self-care (01) ==
LOC: HO.WFDLDS 09:43
PROVIDERS: Visit Provider Family Medicine
DX: Z00.00 Encounter for general adult medical examination without abnormal findings (principal); I10 Essential (primary) hypertension
CPT/HCPCS: 36415; 80053; 80061; 81001; 82043; 82570; 84443; 85025